=== PATIENT | male | born 1985 ===

== ENCOUNTER 2018-10-08 21:28 | Emergency (ER) | payer SELFPAY ==
[2018-10-08 21:58] VITALS: BP 168/77; PULSE 74; RESP 18; TEMP 98.4; O2SAT 99
--- NOTE | 2018-10-08 23:28 | C.PDOC ---
History Of Present Illness 33 year old male presents to the ER with a complaint of left thumb pain and swelling since yesterday. Patient states yesterday morning he hit his left thumb with a hammer while at work. Denies weakness or numbness. Time Seen by Provider: 10/08/18 21:49 Chief Complaint (Nursing): Upper Extremity Problem/Injury History Per: Patient History/Exam Limitations: no limitations Onset/Duration Of Symptoms: Days Current Symptoms Are (Timing): Still Present Exacerbating Factor(s): Strenuous Use Of Affected Area Recent travel outside of the [place]: No Past Medical History Reviewed: Historical Data, Nursing Documentation, Vital Signs Vital Signs: Last Vital Signs Temp 98.4 F 10/08/18 21:46 Pulse 74 10/08/18 21:46 Resp 18 10/08/18 21:46 BP 168/77 H 10/08/18 21:46 Pulse Ox 99 10/08/18 21:46 Family History: States: Unknown Family Hx - Social History Hx Alcohol Use: Yes Hx Substance Use: No - Immunization History Hx Tetanus Toxoid Vaccination: No Hx Influenza Vaccination: No Hx Pneumococcal Vaccination: No Review Of Systems Musculoskeletal: Positive for: Other (Left thumb pain and swelling) Neurological: Negative for: Weakness, Numbness Physical Exam - Physical Exam Appears: Non-toxic Skin: Warm, Dry Head: Atraumatic, Normacephalic Eye(s): bilateral: Normal Inspection Oral Mucosa: Moist Neck: Normal ROM Extremity: Normal ROM, Capillary Refill (<2 seconds), Other ((+) Subungal hematoma to 50% of left thumb nail with moderate swelling and tenderness.) Neurological/Psych: Oriented x3, Normal Speech, Normal Motor, Normal Sensation Gait: Steady ED Course And Treatment O2 Sat by Pulse Oximetry: 99 (Room air) Pulse Ox Interpretation: Normal - Other Rad Left thumb x-ray X-Ray: Interpreted by Me, Viewed By Me Interpretation: No acute fracture or dislocations. Medical Decision Making Medical Decision Making: Left hand x-ray ordered, results were negative. Motrin administered. Left thumb nail hematoma evacuated with relief, patient tolerated well, will discharge home with Rx and instructions to follow up with PMD. Disposition - Disposition Referrals: Bhaskar Jackson MD [Staff Provider] - Disposition: HOME/ ROUTINE Disposition Time: 23:29 Condition: STABLE Additional Instructions: Follow up with the medical doctor within 1-2 days. return if worsened. Prescriptions: Ibuprofen [Motrin Tab] 800 mg PO TID #20 tab Instructions: Contusion in Adults (ED) Forms: [facility] [facility] (Bengali) - Clinical Impression Clinical Impression: Subungual hematoma - PA / SQL ENGINEER / Resident Statement MD/DO has reviewed & agrees with the documentation as recorded. - Scribe Statement The provider has reviewed the documentation as recorded by the Scribe Antwon Valadez All medical record entries made by the Jonibe were at my direction and personally dictated by me. I have reviewed the chart and agree that the record accurately reflects my personal performance of the history, physical exam, medical decision making, and the department course for this patient. I have also personally directed, reviewed, and agree with the discharge instructions and disposition.
--- NOTE | 2018-10-09 10:54 | RAD ---
Date of service: 10/08/2018 PROCEDURE: Left Thumb radiographs. HISTORY: thumb injury and pain COMPARISON: None. TECHNIQUE: AP radiograph of the left hand, as well as spot oblique and lateral images of thumb were obtained. FINDINGS: LEFT THUMB: Normal left thumb, without fracture or focal lesion. Remainder of the left hand (as seen on the AP view) grossly unremarkable. JOINTS: Normal. SOFT TISSUES: Normal. OTHER FINDINGS: None. IMPRESSION: Normal left thumb radiographs.
== END 2018-10-08 23:35 | disposition home or self-care (01) ==
LOC: C.ER 21:28
DX: S60.012A Contusion of left thumb without damage to nail, initial encounter (principal); W22.8XXA Striking against or struck by other objects, initial encounter; Y99.0 Civilian activity done for income or pay